=== PATIENT | female | born 1995 | race Caucasian/White ===

== ENCOUNTER 2016-07-25 14:23 | Emergency (ER) | payer OTHER ==
[2016-07-25 14:27] VITALS: TEMP 98.2
--- NOTE | 2016-07-25 15:09 | EDPHY ---
H & P Time Seen by Provider: 07/25/16 14:54 HPI/ROS: CHIEF COMPLAINT: Headache HISTORY OF PRESENT ILLNESS: The patient is a 20-year-old female with history of migraine headaches who presents with acute headache symptoms. The patient took Robitussin and Pepcid yesterday for URI symptoms. After taking these medications she felt disoriented like her "body was out of control". She took Tylenol and developed shortness of breath and throat tightness. She has history of anxiety and attributed her symptoms to a panic attack. This morning the patient woke up with severe head, back, and neck pain. She felt a heated sensation in her upper back and sharp, tight pain in her neck. She reports pain to the frontal region of her head. These symptoms were her usual migraine symptoms. However, after looking at an iPhone screen, she tried to respond to her mother and had acute difficulty with word finding. She also reports changes in vision, involving a bright light. She states these are not her usual migraine symptoms. The patient has a scheduled appointment with her neurologist , Dr. Galindo, on Friday. MRI of the brain 2-3 years ago normal, according to the patient and her mother. REVIEW OF SYSTEMS: A comprehensive 10 point review of systems is otherwise negative aside from elements mentioned in the history of present illness. Past Medical/Surgical History: Migraines, Anxiety, Depression Social History: Marijuana use. Smoking Status: Never smoked Physical Exam: General Appearance: Alert, pleasant Eyes: Pupils equal and round, no conjunctival pallor or injection ENT, Mouth: Mucous membranes moist Neck: Normal inspection Respiratory: Lungs are clear to auscultation Cardiovascular: Regular rate and rhythm Gastrointestinal: Abdomen is soft and non-tender Neurological: Alert, oriented x3, cranial nerves II through XII intact, motor 5 /5, sensory intact to light touch, normal gait Skin: Warm and dry, no rash Extremities: Nontender, no pedal edema Psychiatric: Mood and affect normal Constitutional: Initial Vital Signs Temperature (C) 36.8 C 07/25/16 14:25 Heart Rate 84 07/25/16 14:25 Respiratory Rate 16 07/25/16 14:25 Blood Pressure 106/71 07/25/16 14:25 O2 Sat (%) 97 07/25/16 14:25 O2 Delivery Mode Room Air Allergies/Adverse Reactions: Sulfa (Sulfonamide Antibiotics) Allergy (Severe, Verified 08/16/12 03:32) "MUSCLE PARILIZATION" amoxicillin [Amoxicillin] Allergy (Verified 04/09/11 01:36) Penicillins Allergy (Verified 04/09/11 01:36) Home Medications: Medication Instructions Recorded Amphet Asp and D/Amphet [Adderall] 10 mg PO 10/16/13 Meclizine HCl [Meclizine HCl 25 mg 25 mg PO Q6 PRN #8 tab 10/16/13 (RX,OTC)] Propranolol HCl 10/16/13 Esomeprazole Mag Trihydrate 40 mg PO DAILY #30 cap. 07/15/14 [Nexium] Medical Decision Making ED Course/Re-evaluation: The patient presents with migraine headache symptoms that started this morning. Associated with transient neurologic symptoms, now resolved. Neurologic exam is normal. Plan to treat with IV Benadryl, Decadron, and Reglan. I considered obtaining a repeat MRI today; however since her neurologic symptoms have resolved, the MRI is most likely normal and the patient is presenting with a atypical migraine headache. 3:54 p.m.: The patient is feeling better after medication. Plan to discharge home. She will followup with her neurologist as scheduled. Differential Diagnosis: Headache including but not limited to subarachnoid hemorrhage, migraine headache , tension headache and infectious causes such as meningitis, pharyngitis and sinusitis. - Data Points Medications Given: Discontinued Medications Dexamethasone (Decadron Injection) 10 mg IVP EDNOW ONE Stop: 07/25/16 15:13 Last Admin: 07/25/16 15:36 Dose: 10 mg Diphenhydramine HCl (Benadryl Injection) 25 mg IVP EDNOW ONE Stop: 07/25/16 15:13 Last Admin: 07/25/16 15:36 Dose: 25 mg Sodium Chloride (Ns) 1,000 mls @ 0 mls/hr IV ONCE ONE PRN Reason: Wide Open Stop: 07/25/16 15:46 Last Admin: 07/25/16 15:45 Dose: 1,000 mls Metoclopramide HCl (Reglan Injection) 10 mg IVP EDNOW ONE Stop: 07/25/16 15:13 Last Admin: 07/25/16 15:36 Dose: 10 mg Departure - Departure Disposition: Home, Routine, Self-Care Clinical Impression: Migraine headache Qualifiers: Migraine type: with aura Status migrainosus presence: without status migrainosus Intractability: not intractable Qualified Code(s): G43.109 - Migraine with aura, not intractable, without status migrainosus Condition: Good Instructions: Migraine Headache (ED) Additional Instructions: Followup with your Neurologist as scheduled on Friday. Referrals: Erlinda Galindo, [Non Staff and Non MD] - As per Instructions Report Scribed for: Raina Suárez Report Scribed by: Jannie Nuñez Date of Report: 07/25/16 Time of Report: 15:09 Physician Review and Approval Statement: 07/25/16 15:09 Portions of this note were transcribed by a medical records tech. I personally performed the history, physical exam, and medical decision-making; and confirmed the accuracy of the information in the transcribed note.
[2016-07-25] MEDS ORDERED: METOCLOPRAMIDE 10 MG/2 ML VIAL IVP ONE (15:12)
[2016-07-25] MEDS ORDERED: DEXAMETHASONE 10 MG/ML VIAL IVP ONE (15:12)
[2016-07-25] MEDS ORDERED: NS 1,000 ML IV ONE (15:45)
[2016-07-25 16:05] VITALS: BP 107/62; PULSE 72; RESP 20; O2SAT 98
== END 2016-07-25 16:03 | disposition home or self-care (01) ==
DX: G43.109 Migraine with aura, not intractable, without status migrainosus (principal)
CPT/HCPCS: 96374; J1200; J2765

== ENCOUNTER 2016-07-28 16:22 | Emergency (ER) | payer OTHER ==
[2016-07-28 16:44] VITALS: RESP 16
--- NOTE | 2016-07-28 19:04 | EDPHY ---
H & P Stated Complaint: elizabeth/neck stiffness/seen thurs dx migraines Time Seen by Provider: 07/28/16 18:44 HPI/ROS: CHIEF COMPLAINT: Headache HISTORY OF PRESENT ILLNESS: This is a 20-year-old female presenting to the emergency department complaining of on resolved migraine. Patient states initial migraine headaches started on Friday07/24/2016 seen here in the ED on 07/25/2016 was given medications. Patient states the headache seem to initially resolved but then that following morning headache started once again with feeling dizzy lightheaded" I felt like I was going to pass out" denies any LOC. Patient states she did take Advil migraine medication this morning which brought the headache down to a dull ache of 2/10, but then symptoms resumed around 1400 with a worsening feeling of lightheadedness. Patient states her last MRI was july be 2-3 years ago was normal, has an appointment with Dr. Galindo neurology on Friday. REVIEW OF SYSTEMS: Constitutional: No fever, no chills. Fatigue Eyes: No blurred vision ENT: No sore throat. Cardiovascular: No chest pain, no palpitations. Respiratory: No cough, no shortness of breath. Gastrointestinal: No abdominal pain. Intermittent nausea no vomiting Genitourinary: No hematuria. Musculoskeletal: No back pain. Skin: No rashes. Neurological: headache. Source: Patient, Old records - Personal History LMP (Females 10-55): Over 28 Days Ago Current Tetanus/Diphtheria Vaccine: Yes Tetanus Vaccine Date: 2010 - Medical/Surgical History Hx Asthma: Yes Hx Chronic Respiratory Disease: No Hx Diabetes: No Hx Cardiac Disease: No Hx Renal Disease: No Hx Cirrhosis: No Hx Alcoholism: No Hx HIV/AIDS: No Hx Splenectomy or Spleen Trauma: No Other PMH: medical Migraines, chronic headache, ADD, anxiety disorder. surgery none - Social History Smoking Status: Never smoked - Physical Exam Exam: General Appearance: Alert, no distress. Eyes: PERRLA no pallor or injection. ENT, Mouth: Mucous membranes moist. Respiratory: There are no retractions, lungs are clear to auscultation. Cardiovascular: Regular rate and rhythm. Gastrointestinal: Abdomen is soft and nontender, no masses, bowel sounds normal. Neurological: No focal deficits. All cranial nerves intact, motor skills intact Ambulatory without gait disturbance Skin: Warm and dry, no rashes. Musculoskeletal: Vertebral cervical spine nontender on palpation full range of motion. Right lateral neck tenderness on palpation, full range of motion without difficulty Extremities: symmetrical, full range of motion. Psychiatric: Patient is oriented X 3, there is no agitation. Constitutional: Initial Vital Signs Temperature (C) 37 C 07/28/16 16:41 Heart Rate 76 07/28/16 16:41 Respiratory Rate 16 07/28/16 16:41 Blood Pressure 106/69 07/28/16 16:41 O2 Sat (%) 97 07/28/16 16:41 O2 Delivery Mode Room Air Allergies/Adverse Reactions: Sulfa (Sulfonamide Antibiotics) Allergy (Severe, Verified 07/28/16 16:40) "MUSCLE PARILIZATION" amoxicillin [Amoxicillin] Allergy (Verified 07/28/16 16:40) Penicillins Allergy (Verified 07/28/16 16:40) Home Medications: Medication Instructions Recorded Advil Migraine 07/28/16 Medical Decision Making - Diagnostics Imaging Results: Imaging Impressions Brain MRI 07/28/16 19:16 Impression: Normal brain. No intracranial hemorrhage, mass, or white matter disease. Findings discussed with emergency department, Katherine Casas NP on July 28, 2016 at 8:24 p.m. ED Course/Re-evaluation: Discussed the plan of care: CBC, BMP, MRI with and without contrast 0: Re-evaluation-->NAD, will appear reports decrease in headache 03/12. Discussed negative MRI results with patient, additional dose 25 mg Imitrex given. 0: Discharge home---> stable, discussed discharge instructions with patient Differential Diagnosis: Other differential diagnosis considered but not limited to subarachnoid hemorrhage, CVA and aneurysm - Data Points Laboratory Results: 07/28/16 19:33 POC Hgb 15.6 gm/dL gm/dL (12.3-15.9) POC Hct 46 % % (35.5-47.5) POC Sodium 144 mEq/L mEq/L (134-144) POC Potassium 3.5 mEq/L mEq/L (3.3-5.0) POC Chloride 105 mEq/L mEq/L (96-108) POC BUN 17 mg/dL mg/dL (7-23) POC Creatinine 1.1 mg/dL mg/dL (0.6-1.2) POC Glucose 94 mg/dL mg/dL (70-100) Medications Given: Discontinued Medications Sodium Chloride (Ns) 1,000 mls @ 0 mls/hr IV ONCE ONE PRN Reason: Wide Open Stop: 07/28/16 20:22 Last Admin: 07/28/16 20:38 Dose: 1,000 mls Metoclopramide HCl (Reglan Injection) 10 mg IVP EDNOW ONE Stop: 07/28/16 20:23 Last Admin: 07/28/16 20:38 Dose: 10 mg Sumatriptan Succinate (Imitrex) 25 mg PO ONCE ONE Stop: 07/28/16 20:22 Last Admin: 07/28/16 20:38 Dose: 25 mg Sumatriptan Succinate (Imitrex) 25 mg PO ONCE ONE Stop: 07/28/16 21:25 Last Admin: 07/28/16 21:39 Dose: 25 mg Point of Care Test Results: 07/28/16 19:33 POC Sodium 144 POC Potassium 3.5 POC Chloride 105 POC BUN 17 POC Creatinine 1.1 POC Glucose 94 Departure - Departure Disposition: Home, Routine, Self-Care Clinical Impression: Migraine Condition: Good Instructions: Migraine Headache (ED) Additional Instructions: Discussed discharge instructions 1. Discussed negative MRI results 2. Your given 50 mg of Imitrex here in the ED , this seems to be helping to reduce your migraine 3. Ibuprofen and/or Tylenol as needed 4. Follow up with Dr. Galindo neurology on Friday your scheduled appointment 5. If any symptoms worsen or change return to the ER Referrals: NONE *PRIMARY CARE P,. [Primary Care Provider] - As per Instructions Erlinda Galindo DO [Non Staff and Non MD] - As per Instructions
[2016-07-28] MEDS ORDERED: GADOBUTROL 10 ML VIAL IVP ONE (19:50)
[2016-07-28] MEDS ORDERED: NS 1,000 ML IV ONE (20:21)
[2016-07-28] MEDS ORDERED: SUMAtriptan 25 MG TAB PO ONE ×2 (20:21→21:24)
[2016-07-28] MEDS ORDERED: METOCLOPRAMIDE 10 MG/2 ML VIAL IVP ONE (20:22)
[2016-07-28 21:40] VITALS: BP 117/67; PULSE 66; TEMP 97.9; O2SAT 96
== END 2016-07-28 21:41 | disposition home or self-care (01) ==
DX: G43.909 Migraine, unspecified, not intractable, without status migrainosus (principal); J45.909 Unspecified asthma, uncomplicated
CPT/HCPCS: 82947-QW; 96374; A9585; J2765

== ENCOUNTER → 2017-06-26 | Outpatient (CLI) | payer OTHER ==
[~2017-06-26] MED LIST: GADOBUTROL 10 ML VIAL IVP ONE
== END ==
LOC: FIMAGING 12:25
PROVIDERS: ATTEND Psychiatry & Neurology Neurology
DX: G43.909 Migraine, unspecified, not intractable, without status migrainosus (principal)
CPT/HCPCS: A9585